=== PATIENT | male | born 1960 | race Two or more races ===

== ENCOUNTER 2024-10-05 12:11 | Emergency (ER) | payer MEDICAID ==
[~2024-10-05] VITALS: Ht 165.1 cm; Wt 74.4 kg
[~2024-10-05 12:11] MED LIST: DOCU-94 PO
--- NOTE | 2024-10-05 12:47 | ED.PDOC ---
History of Present Illness HPI Comments 64 y/o M, with a history of tobacco cigarette use, presents with c/o constipation, today. Patient is a [place] speaker and endorses on not being able to have a proper bowel movement for the past 2x days, with last normal bowel movement on 10/02/24. He denies having any abdominal pain, nausea, vomiting, fever, chills, or other associated symptoms or modifiers at this time. Chief Complaint: Constipation Time Seen by MD: 12:15 Reviewed Notes: Nurses Notes, Medications, Allergies Allergies: Coded Allergies: NO KNOWN ALLERGIES (Unverified , 10/05/24) Home Meds Active Scripts Docusate Sodium (Colace) 100 Mg Cap, 1 CAP PO BID for 15 Days, #30 CAP Prov:HENRIQUE CUNHA PAC 05/12/24 Information Source: Patient Mode of Arrival: Ambulatory Severity: Moderate Timing: Days Duration: Since onset Prehospital treatment: None Past Medical History PAST MEDICAL HISTORY: Denies Surgical History: Denies all surgeries Family History Family History: Reviewed,noncontributory to illness, No family hx of Cancer, No family hx of DM, No family hx of Heart rupal, No family hx of HTN, No family hx ofKidney rupal, No family hx of Liver rupal, No family hx of Lung rupal, No family hx of Stroke Social History Smoker: Cigarettes Alcohol: Denies ETOH Use Drugs: Denies Drug Use Lives In: Home Gastrointestinal: reports: constipated All Other Systems: Reviewed and Negative (negative unless otherwise stated above or in HPI) Physical Exam General Appearance: No Apparent Distress, Normal HEENT: Normal ENT Inspection, Pharynx Normal, TMs Normal Neck: Full Range of Motion, Non-Tender, Normal, Normal Inspection Respiratory: Chest Non-Tender, Lungs Clear, No Accessory Muscle Use, No Respiratory Distress, Normal Breath Sounds Cardiovascular: No Edema, No JVD, No Murmur, No Gallop, Normal Peripheral Pulses, Regular Rate/Rhythm Breast Exam: Deferred Gastrointestinal: No Organomegaly, Non Tender, No Pulsatile Mass, Soft, Other (decreased bowel sounds ) Genitalia: Deferred Pelvic: Deferred Rectal: Deferred Extremities: No calf tenderness, Normal capillary refill, Normal inspection, Normal range of motion, Non-tender, No pedal edema Musculoskeletal : Apperance: Normal Neurologic: Alert, cell coverer II-XII nml as Tested, No Motor Deficits, Normal Affect, Normal Mood, No Sensory Deficits Cerebellar Function: Normal Reflexes: Normal Skin: Dry, Normal Color, Warm Lymphatic: No Adenopathy Was a procedure done? Was a procedure done?: No Differential Dx Considerations may include: constipation, sbo, ileus, colitis X-Ray, Labs, Meds, VS Vital Signs Date Time Temp Pulse Resp B/P (MAP) Pulse Ox O2 Delivery O2 Flow Rate FiO2 10/05/24 12:54 98.1 101 16 129/87 (101) 95 98.1 10/05/24 12:54 101 17 95 Room Air* 0 21 10/05/24 12:16 97.8 98 16 144/85 (104) 97 Time of 1ST Reevaluation: 12:45 Reevaluation 1ST: Unchanged Patient Education/Counseling: Diagnosis, Treatment, Prognosis, Need For Follow Up Family Education/Counseling: No Family Present Additional Information - I reviewed the following notes from patient's past medical encounters: ED visit on 05/12/24 - The following tests were ordered, and results were reviewed by me: X-ray abdomen - I reviewed and agreed with the following test results read by other provider: X-ray abdomen - I discussed treatments and results with medical personnel kub confirms constipation, without ileus or sbo. pt has no pain. i will start him on miralax Departure 1 Departure Time of Disposition: 13:30 Impression: Primary Impression: Constipation Qualified Codes: K59.01 - Slow transit constipation Disposition: HOME / SELF CARE / HOMELESS Condition: Good e-Prescriptions Polyethylene Glycol 3350 (Miralax) 17 Gm Pow 17 GM PO DAILY PRN for 3 Days, #3 POW Prov: MICHAEL PLEITEZ MD 10/05/24 Discharged With: Self Critical Care Note Critical Care Time?: No Stability Stability form required: No Heart Score Heart Score: Heart Score Response (Comments) Value History N/A 0 EKG N/A 0 Age N/A 0 Risk Factors N/A 0 Troponin N/A 0 Total 0 I personally scribed for MICHAEL PLEITEZ MD ([email or web address]) on 10/05/24 at 12:46. Electronically submitted by Ochoa Calvillo ([email or web address]). MICHAEL PLEITEZ MD Oct 05, 2024 12:46
--- NOTE | 2024-10-05 12:48 | DVH ---
Exam: XY KUB ABDOMEN SINGLE VIEW Indication: constipation Comparison: XY KUB ABDOMEN SINGLE VIEW on DOS: 05/12/24 Technique: 1 radiographic views of the abdomen. Findings: Moderate volume colonic stool. Nonobstructive bowel gas pattern noted. There is no definite evidence for pneumoperitoneum. No abnormal calcifications noted. Impression: Nonobstructive bowel gas pattern noted. Moderate volume colonic stool.
[2024-10-05 12:54] VITALS: BP 129/87; PULSE 101; RESP 17; TEMP 98.1; O2SAT 95
[2024-10-05] MEDS ORDERED: POLY335015 PO (13:31)
== END 2024-10-05 13:48 | disposition home or self-care (01) ==
LOC: ER 12:11
DX: K59.00 Constipation, unspecified (principal); F17.210 Nicotine dependence, cigarettes, uncomplicated
CPT/HCPCS: 74018